=== PATIENT | male | born 1955 | race Hispanic/Latino ===

== ENCOUNTER 2017-11-02 09:44 | Observation (INO) | payer OTHER ==
[~2017-11-02] VITALS: Ht 175.3 cm; Wt 74.8 kg
[~2017-11-02 09:44] MED LIST: METAXALONE800 MG PO; MOBIC7.5 MG PO
[2017-11-02 11:06] LABS: BASOPHILS # (AUTO) 0.1 (0.0-0.1); EOSINOPHILS # (AUTO) 0.4 (0.0-0.4); EOSINOPHILS % 6.6 % (0.0-6.0); HEMATOCRIT 42.4 % (38.2-49.6); HEMOGLOBIN 14.5 g/dL (14.0-18.0); LYMPHOCYTES # (AUTO) 1.8 (1.0-3.2); LYMPHOCYTES % 31.5 % (18.0-39.1); MEAN CORPUSCULAR HEMOGLOBIN 30.7 pg (28-32); MEAN CORPUSCULAR HGB CONC 34.2 g/dL (31-35); MEAN CORPUSCULAR VOLUME 89.8 fL (81-99); MONOCYTES # (AUTO) 0.5 (0.2-0.8); MONOCYTES % 9.4 % (4.4-11.3); NEUTROPHILS # (AUTO) 2.9 (2.1-6.9); NEUTROPHILS % 51.2 % (38.7-80.0); PLATELET COUNT 173 x10e3/uL (140-360); RED BLOOD COUNT 4.72 x10e6/uL (4.3-5.7); RED CELL DISTRIBUTION WIDTH 13.1 % (11.7-14.4)
[2017-11-02 11:21] LABS: BLOOD UREA NITROGEN 17 mg/dL (7-26); BUN/CREATININE RATIO 18 (6-25); CALCIUM 9.2 mg/dL (8.4-10.2); CARBON DIOXIDE 26 mmol/L (22-29); CHLORIDE 105 mmol/L (98-107); CREATININE, SERUM 0.95 mg/dL (0.72-1.25); EST GLOMERULAR FILTRATION RATE > 60 ML/MIN (60-); GLUCOSE 93 mg/dL (74-118); SODIUM 139 mmol/L (136-145)
--- NOTE | 2017-11-02 12:08 | Diagnostic Imaging Report ---
PROCEDURE: X-RAY CHEST, TWO VIEWS COMPARISON: None. INDICATIONS: PRE OPERATIVE CHEST X-RAY FOR HERNIA REPAIR FINDINGS: LUNGS: No consolidations or edema. PLEURA: No effusions or pneumothorax. HEART \T\ MEDIASTINUM: The heart is within normal size-limits. Tortuous thoracic aorta. BONES \T\ SOFT TISSUES: Mild degenerative change of the lower thoracic/upper lumbar spine. CONCLUSION: No acute thoracic abnormality. Nico Bailey D.O. Dictated by: Nico Bailey D.O. on 11/02/2017 at 12:11 Electronically approved by: Nico Bailey D.O. on 11/02/2017 at 12:11
[2017-11-02] MEDS ORDERED: BUPIVACAINE 0.25% 30ML SDV INJ ONE (12:53)
[2017-11-02] MEDS ORDERED: LIDOCAINE HCL 1% 30ML-PF VIAL ONE (12:53)
[2017-11-02] MEDS ORDERED: LIDOCAINE 1% W/EPINEPHRINE 20 ML VIAL ONE (12:54)
[2017-11-02] MEDS ORDERED: PROPOFOL IV EMULSION 10 MG/ML 20 ML VIAL ONE (15:40)
[2017-11-02] MEDS ORDERED: GLYCOPYRROLATE INJ 1MG/ 5 ML SYR ONE (15:40)
[2017-11-02] MEDS ORDERED: DEXAMETHASONE SOD PHOS INJ 4 MG/ML VIAL ONE (15:40)
[2017-11-02] MEDS ORDERED: SEVOFLURANE INHAL SOLN 250 ML PEN BTL ONE (15:40)
[2017-11-02] MEDS ORDERED: LIDOCAINE HCL 2% LOCAL INJ 5 ML SDV VIAL INJ ONE (15:40)
[2017-11-02] MEDS ORDERED: NEOSTIGMINE 5 MG/5ML SYR ONE (15:40)
[2017-11-02] MEDS ORDERED: ROCURONIUM BROMIDE 10 MG/ML 5ML VIAL ONE (15:40)
[2017-11-02] MEDS ORDERED: ONDANSETRON HCL INJ 2 MG/ML VIAL ONE (15:40)
[2017-11-02] MEDS ORDERED: EPHEDRINE SULFATE INJ 50 MG/10 ML SYR ONE (15:40)
--- NOTE | 2017-11-02 15:49 | Operative Report ---
DATE OF PROCEDURE: November 02, 2017 PREOPERATIVE DIAGNOSIS: Right inguinal hernia. POSTOPERATIVE DIAGNOSIS: Right inguinal and right femoral hernias. OPERATION PERFORMED: Repair of right inguinal hernia with extended Prolene hernia system and repair of right femoral hernia with mesh. BOAT CAPTAIN: YOU Henao. ANESTHESIA: General. COMPLICATIONS: None. ESTIMATED BLOOD LOSS: Minimal. DESCRIPTION OF PROCEDURE: With the patient lying in bed in the supine position under good general anesthesia, the abdomen was prepped with Betadine solution and draped in the usual manner. A right inguinal incision was made, was carried down through the subcutaneous tissue down to the external oblique aponeurosis. External oblique was opened along the length of its fibers and external inguinal ring was opened. The cord was then mobilized and retracted. There was no indirect hernia sac but there was a defect in the direct space which was reduced back to the intra-abdominal cavity and was then purse-string with 2-0 silk suture after this was done. The preperitoneal space was then entered and a pocket was created without any difficulty. An extended Prolene hernia system was placed in the preperitoneal space and the underlay patch was deployed without any problems. The overlay patch was then placed over the floor and split inferolaterally to allow for passage of the cord. The mesh was sutured to the conjoined tendon and inguinal ligament using interrupted sutures of 2-0 Vicryl. All layers were infiltrated on the way out with solution of 1/4 percent Marcaine and 1% lidocaine mixed in equal parts. External oblique aponeurosis was closed with a running suture of 2-0 Vicryl. The subcutaneous tissue was approximated with 3-0 plain and the skin was closed with clips. At this point as the patient was waking up we noticed that there was a bulge coming out through the lower aspect into the right thigh representing what was obviously femoral hernia as well. So we decided to go ahead and reopen the wound. The wound was then reprepped and draped. The yomi were removed and the femoral space was then inspected and immediately a femoral hernia was also identified. The femoral hernia was then from the upper thigh and reduced back to the intra-abdominal cavity. A medium-size Prolene hernia system was then placed in the preperitoneal space and the overlay patch was then sutured to the conjoined tendon and the pectineal fascia using interrupted sutures of 2-0 Ethibond. This gave us a satisfactory repair without any tension. The whole area was thoroughly irrigated. Hemostasis was ascertained. The subcutaneous tissue was then reapproximated with 2-0 plain and the skin was closed with clips. Dressings were applied. The sponge, lap and needle count was correct. The patient tolerated the procedure well and returned to the recovery room in stable condition. Job#: [id number] BEST
[2017-11-02] MEDS ORDERED: FENTANYL CITRATE/PF 100MCG/2 ML INJ ONE (18:45)
[2017-11-02] MEDS ORDERED: MIDAZOLAM HCL 2 MG/2 ML VIAL ONE (18:45)
[2017-11-02] MEDS ORDERED: HYDROCODONE BIT/ACETAMINOPHEN 2.5 MG/108MG PER 5 ML SOLUTION PO PRN (21:15)
[2017-11-02] MEDS ORDERED: HYDROMORPHONE 1MG/1ML INJ IV PRN (21:15)
[2017-11-02] MEDS ORDERED: DEXTROSE 5%/LACTATED RINGERS 1,000 ML IV ONE (21:15)
[2017-11-03] VITALS (8 sets, daily range): BP systolic 117–151; BP diastolic 73–91
== END 2017-11-03 14:26 | disposition home or self-care (01) ==
LOC: OR 09:44 → IMCU 20:56
PROVIDERS: ADMIT Surgery; ATTEND Surgery
DX: K40.90 Unilateral inguinal hernia, without obstruction or gangrene, not specified as recurrent (principal); K41.90 Unilateral femoral hernia, without obstruction or gangrene, not specified as recurrent; K21.9 Gastro-esophageal reflux disease without esophagitis
CPT/HCPCS: 36415; 49505; 49550; 71046; 80048; 85025; C1781 ×2; G0378 ×2; J1100; J1170; J2001; J2250; J2405; J3490; J7120